=== PATIENT | female | born 1940 | race Caucasian/White ===

== ENCOUNTER 2017-12-17 03:49 | Emergency (ER) | payer MEDICARE, OTHER, SELFPAY ==
[2017-12-17 04:02] VITALS: BP 151/81; PULSE 92; RESP 18; TEMP 36.6; O2SAT 98
[2017-12-17 04:02] LABS: Appearance Urine UA CLEAR; Bilirubin Urine UA NEGATIVE (NEGATIVE); Color Urine UA YELLOW; Glucose Urine UA NEGATIVE (Normal); Ketones Urine UA NEGATIVE (NEGATIVE); Leukocyte Esterase Urine UA 2+ (NEGATIVE); Nitrite Urine UA Negative (Negative); Occult Blood Urine UA 2+ (Negative); Protein Urine UA NEGATIVE (Negative); Specific Gravity Urine UA <=1.005 (1.000-1.035); Urobilinogen Urine UA 0.2 E.U./dL (0.2)
[2017-12-17 04:20] LABS: Bacteria Urine Few (2-10); Culture Indicated Urine Specimen Cultured; RBC Urine 1-5/HPF (0-5/HPF); WBC Urine 10-30/HPF (0-5/HPF)
--- NOTE | 2017-12-17 04:35 | ED.PREGNANCY ---
HPI - General Chief complaint: Urogenital-Female Stated complaint: UTI Symptoms Time Seen by Provider: 12/17/17 04:35 Source: patient Mode of arrival: ambulatory Limitations: no limitations History of Present Illness HPI Narrative: The patient has infrequent UTIs. She is traveling, she is visiting locally on vacation. She has developed low abdominal cramping with urgency and frequency. She has dysuria. She denies hematuria. She has no GI complaints. She denies fever or chills. Related Data Previous Rx's Medication Instructions Recorded sulfamethoxazole-trimethoprim 1 tab PO BID 7 Days #14 tab 12/17/17 [Bactrim DS] Allergies Allergy/AdvReac Type Severity Reaction Status Date / Time No Known Drug Allergies Allergy Verified 12/17/17 04:57 Review of Systems Review of Systems All systems reviewed & are unremarkable except as noted in HPI and below Constitutional Denies chills, Denies fatigue and Denies fever(s) Gastrointestinal Gastrointestinal: Denies abdominal pain, Denies change in bowel habits, Denies diarrhea, Denies nausea and Denies vomiting Genitourinary Reports as per HPI, Denies hematuria, Reports dysuria, Denies flank pain, Denies urinary incontinence and Reports urinary urgency Musculoskeletal Denies back pain Endocrine Denies fatigue PMFSH - Past Medical History Medical history: Reports no medical history Surgical history: Reports no surgical history Family history: Reports no significant family history Exam Initial Vital Signs Initial Vital Signs: Vital Signs Temperature 97.8 F 12/17/17 04:02 Pulse Rate 92 H 12/17/17 04:02 Respiratory Rate 18 12/17/17 04:02 Blood Pressure 151/81 H 12/17/17 04:02 Pulse Oximetry 98 12/17/17 04:02 Const General: cooperative, healthy appearing and well developed Nutritional Appearance: well nourished Orientation: alert, awake and oriented x3 Resp Effort & Inspection: normal respiratory effort, able to speak in complete sentences, no respiratory distress and no use of accessory muscles Auscultation: clear to auscultation bilaterally, no rales, no rhonchi and no wheezes Cardio Rate: regular rate Rhythm: regular rhythm Heart Sounds: no click, no gallops, no murmurs and no rubs Pulses: normal peripheral pulses GI Palpation: soft, no hepatosplenomegaly, No pulsatile mass and tender Auscultation: normal bowel sounds Back/Spine/Pelvis Back: No CVA tenderness Course Orders Ordered: ED Orders 12/17/17 03:55 Urinalysis and Microscopic Stat Urine Culture Stat Discontinued Medications Trimethoprim/Sulfamethoxazole (Bactrim Ds) 1 tab PO NOW ONE Stop: 12/17/17 04:40 Last Admin: 12/17/17 04:51 Dose: 1 tab Vital Signs - 8 hr 12/17/17 04:02 Temperature 97.8 F Pulse Rate 92 H Respiratory Rate 18 Blood Pressure 151/81 H Pulse Oximetry 98 MDM - OB/Uterine Contractions Lab Data Lab Results 12/17/17 Range/Units 03:55 Urine Color Yellow Urine Appearance Clear Urine pH 6.0 (4.5-8.0) Ur Specific Vantage <=1.005 (1.000-1.035) Urine Protein Negative (Negative) Urine Glucose (UA) Negative (Normal) g/dL Urine Ketones Negative (NEGATIVE) Urine Occult Blood 2+ H (Negative) Urine Nitrate Negative (Negative) Urine Bilirubin Negative (NEGATIVE) Urine Urobilinogen 0.2 (0.2) E.U./dL Ur Leukocyte Esterase 2+ H (NEGATIVE) Urine RBC 1-5/hpf (0-5/HPF) Urine WBC 10-30/hpf H (0-5/HPF) Urine Bacteria Few (2-10) H (None) Ur Culture Indicated? Specimen cultured Discharge Plan Departure Patient Disposition: Home, Self-Care Clinical Impression: Urinary tract infection Discharge Date/Time: 12/17/17 04:57 Interventions: ED Discharge Assessment Last Done: 12/17/17 04:53 Instructions: DI for Urinary Tract Infection (UTI) Activity Restrictions/Additional Instructions: Septra DS 2 times daily as prescribed. Drink plenty of fluids, stay well hydrated. Return the ER if you develop increased pain, fever, or vomiting. Prescriptions: New sulfamethoxazole-trimethoprim [Bactrim DS] 800-160 mg tablet 1 tab PO BID 7 Days Qty: 14 RF: 0
[2017-12-17] MEDS: SULFA/TRIMETH 800/160 (DS) TABLET 1 TAB PO (04:51)
== END 2017-12-17 04:57 | disposition home or self-care (01) ==
PROVIDERS: Emergency Provider Emergency Medicine
DX: N39.0 Urinary tract infection, site not specified (principal)
CPT/HCPCS: 81001; 87077; 87086; 87186; 99282; 99283